=== PATIENT | female | born 1965 | race Native Hawaiian/Other Pacific Islander ===

== ENCOUNTER 2018-01-15 14:20 | Outpatient (CLI) | payer OTHER | END 2018-01-15 14:34 | disposition short-term general hospital (02) | LOC: AMB 14:20 | DX: R07.89 Other chest pain (principal) | CPT/HCPCS: A0425; A0427 ==

== ENCOUNTER 2018-01-15 14:34 | Emergency (ER) | payer OTHER ==
[~2018-01-15] VITALS: Ht 172.7 cm; Wt 63.5 kg
[2018-01-15 15:11] LABS: PLATELET COUNT 236 K/uL (152-353)
[2018-01-15 15:18] LABS: POTASSIUM 3.6 mmol/L (3.6-5.2); SODIUM 144 mmol/L (136-145)
[2018-01-15 17:45] VITALS: BP 107/59; TEMP 97.7
== END 2018-01-15 17:45 | disposition short-term general hospital (02) ==
LOC: ED 14:34
PROVIDERS: Family Medicine
DX: I20.8 Other forms of angina pectoris (principal)
CPT/HCPCS: 80053; 84484; 85027; 93005; 96374; 99283; J2270

== ENCOUNTER 2018-02-02 14:21 | Emergency (ER) | payer OTHER | END 2018-02-02 14:42 | disposition home or self-care (01) | LOC: ED 14:21 | DX: R51 Headache (principal) ==

== ENCOUNTER 2018-03-07 12:53 | Emergency (ER) | payer OTHER ==
[~2018-03-07] VITALS: Ht 172.7 cm; Wt 59.0 kg
[2018-03-07 12:55] VITALS: TEMP 97.5
[2018-03-07 13:34] LABS: PLATELET COUNT 263 K/uL (152-353)
[2018-03-07 13:49] LABS: POTASSIUM 3.5 mmol/L (3.6-5.2)
[2018-03-07 14:55] VITALS: BP 113/74
== END 2018-03-07 16:45 | disposition home or self-care (01) ==
LOC: ED 12:53
DX: N39.0 Urinary tract infection, site not specified (principal); K57.92 Diverticulitis of intestine, part unspecified, without perforation or abscess without bleeding
CPT/HCPCS: 36415; 74022; 80053; 81000; 82150; 83605; 83690; 85027; 87086; 87088; 96374; 96375; 96376; 99284; J2175; J2405

== ENCOUNTER 2018-03-08 17:45 | Observation (INO) | payer OTHER ==
[~2018-03-08] VITALS: Ht 172.7 cm; Wt 63.5 kg
[2018-03-08 17:55] VITALS: BP 121/74; TEMP 98.5
[2018-03-08 19:06] LABS: PLATELET COUNT 241 K/uL (152-353)
[2018-03-08 19:24] LABS: POTASSIUM 3.6 mmol/L (3.6-5.2); SODIUM 142 mmol/L (136-145)
[2018-03-08 22:34] VITALS: BP 115/72
[2018-03-09 01:03] VITALS: BP 111/71; TEMP 98.2; Ht 172.7 cm; Wt 63.5 kg
[2018-03-09] MEDS ORDERED: ZANTAC300 MG PO (01:32)
[2018-03-09] MEDS ORDERED: NEXIUM40 M1 PO (01:34)
[2018-03-09] MEDS ORDERED: TEMA30CA18 PO (01:35)
[2018-03-09] MEDS ORDERED: CLON1TAB18 PO (01:37)
[2018-03-09] MEDS ORDERED: ESTRING2 MG PO (01:54)
[2018-03-09 05:53] LABS: PLATELET COUNT 218 K/uL (152-353)
[2018-03-09 06:08] LABS: POTASSIUM 3.5 mmol/L (3.6-5.2)
== END 2018-03-09 16:35 | disposition home or self-care (01) ==
LOC: ED 17:45 → MED/SURG 22:15
PROVIDERS: ADMIT Family Medicine
DX: K57.32 Diverticulitis of large intestine without perforation or abscess without bleeding (principal); I25.10 Atherosclerotic heart disease of native coronary artery without angina pectoris; K21.9 Gastro-esophageal reflux disease without esophagitis; E87.6 Hypokalemia; F43.10 Post-traumatic stress disorder, unspecified; G47.09 Other insomnia; N39.0 Urinary tract infection, site not specified; I82.499 Acute embolism and thrombosis of other specified deep vein of unspecified lower extremity
CPT/HCPCS: 36415; 80053; 81000; 82272; 82550; 83690; 84484; 85027; 87040; 87088; 93005; 96360; 96365; 96366; 96367; 96372; 96374; 96375; 99220; 99284; G0378; J0744; J1580; J1650; J2175; J2270; J2405; J3490